=== PATIENT | male | born 1980 ===

== ENCOUNTER 2024-06-09 16:46 | Emergency (ER) | payer MEDICAID ==
[~2024-06-09] VITALS: Ht 182.9 cm; Wt 76.1 kg
[2024-06-09 16:51] VITALS: BP 133/84; PULSE 88; RESP 18; TEMP 97.8; O2SAT 98
== END 2024-06-09 21:17 | disposition left against medical advice (07) ==
LOC: ER 16:47
DX: T18.5XXA Foreign body in anus and rectum, initial encounter (principal); Z53.21 Procedure and treatment not carried out due to patient leaving prior to being seen by health care provider; W44.8XXA Other foreign body entering into or through a natural orifice, initial encounter; Y93.89 Activity, other specified; Y92.89 Other specified places as the place of occurrence of the external cause; Y99.8 Other external cause status

== ENCOUNTER 2024-06-10 05:18 | Emergency (ER) | payer SELFPAY ==
[~2024-06-10] VITALS: Ht 182.9 cm; Wt 77.3 kg
[2024-06-10 05:27] VITALS: BP 113/73; PULSE 63; RESP 16; TEMP 98; O2SAT 100
== END 2024-06-10 08:07 | disposition left against medical advice (07) ==
LOC: ER 05:20
DX: T17.1XXA Foreign body in nostril, initial encounter (principal); Z53.21 Procedure and treatment not carried out due to patient leaving prior to being seen by health care provider; W44.8XXA Other foreign body entering into or through a natural orifice, initial encounter; Y93.89 Activity, other specified; Y92.89 Other specified places as the place of occurrence of the external cause; Y99.8 Other external cause status